=== PATIENT | male | born 1995 | race Caucasian/White ===

== ENCOUNTER 2025-02-04 15:48 | Emergency (ER) | payer MEDICAID, SELFPAY ==
--- OUTSIDE RECORDS SUMMARY | 2020-02-02 08:00 | XMS_ITS | Continuity of Care Document ---
Author Organization [facility] Address [id number] [address] Phone Care Team Providers Care Communications Programmer Name Role Phone Unavailable Unavailable Unavailable Allergies, Adverse Reactions, Alerts Substance Reaction Status Criticality No Known Allergies Active No Inform ation Medications Medication Instructions Dosage Effective Dates (start - stop) Status Comments Celexa 40 mg tablet Take 1 Tablet PO QHS - Active Celexa 40 mg tablet take /2 tab PO Q HS for 1 week then increase to 1 tab PO Q HS - No Longer Active Procedures Procedure Date Finalize Template Workaround OFFICE/OUTPATIENT VISIT, EST (1371) Finalize Template Workaround PSYCH DIAG EVAL W/MED SRVCS (94) 2019 Patient Left / No Show Advance Directives Directive Yes / No Effective Date File Name No Information Encounters Encounter Description Practice Location Reason(s) For Visit Diagnoses Date Provider Providers Copied on Encounter [facility], [id number] [facility], [place]EVIN Brian, [id number], [place] tel:[phone] Behavioral Medicine F2 Depression (chief complaint)A nxiety (chief complaint) Major depressive disorder, recurrent, moderateGenera lized Anxiety Disorder 0 No Information [facility], [id number]- [facility], [place], [place], [id number], tel:[phone] Behavioral Medicine F2 Initial psych eval (chief complaint) Major depressive disorder, recurrent, moderateGenera lized Anxiety Disorder [phone] No Information [facility], [id number] [place] [place], [id number], tel:[phone] [facility] [phone] [place], [address], [place]. tel:[phone] Referring Provider: Michelet Cedillo, [address] [place], [address]. tel:[phone] Family History Family Member Type Diagnosis Age At Onset Problem (finding) Family history of Menta l illness Payers Payer name Insurance type Covered democrat ID Authoriza tion(s) No Information Social History Type Description Quantity Date Captured Comments Alcohol Use Details Unknown Caffeine Use Details Unknown Tobacco Use Status Occasional cigarette smoker Smoking Status Heavy tobacco smoker Smoking Tobacco Use Details Cigarette: No Details Available Cigarette: 1 Packs per day Sex Male Vital Signs Date / Time: Height Weight BMI Pulse Rate Blood Pressure Temperature Respiratory Rate Body Surface Area Head Circumference Head Circ. Percentile Wt./Renaldo. Percentile BMI percentile Pulse Ox Inhaled Ox 1:03 PM 70.00 in 61.235 kg (135.00 lbs) 19.3 7 kg/m eter (2) 95 /min 116/60 mm[Hg] 99.10 F 16 /min 1.74 meter(2) 95 % 21 % Chief Complaint And Reason For Visit From encounter dated '02/02/2020 13:00'. Depression (chief complaint). Description: This is a follow up visit. Related symptoms are stable. There is improvement of initial symptoms. The patient reports functioning as not difficult at all. The patient denies any presenting symptoms. The patient denies any aggravating factors. The patient's relieving factors are a 95% response to medication (Celexa). The patient denies any headache, nausea, urinary frequency, vomiting and weight gain. The patient denies any associated symptoms. Anxiety (chief complaint) Reason For Referral Reason For Referral No Information Plan Of Treatment Date Type Action Status Goal Tobacco cessation counseling completed Goal Tobacco cessation counseling completed History Of Present Illness Encounter Date Complaint History Of Prese nt Illness Depression This is a follow up visit. Related symptoms are stable. There is improvement of initial symptoms. The patient reports functioning as not difficult at all. The patient denies any presenting symptoms. The patient denies any aggravating factors. The patient's relieving factors are a 95% response to medication (Celexa). The patient denies any headache, nausea, urinary frequency, vomiting and weight gain. The patient denies any associated symptoms. Anxiety Initial psych eval This is a 24 year old white male who is here today establishing care and was referred to us by family. Patient presents today with depression, isolation, dysphoria, anhedonia, anergia, anxiety, and feelings of panic.PSYCHIATRIC HISTORYPatient reports mood symptoms starting approximately 2 years ago and indicates that he has had no treatment in the past. He does report depression, dysphoria, anhedonia, anergia, isolation, and hypersomnia and also reports continuing anxiety with worry and fear in addition to minimal panic attacks. No past inpatient admissions are reported and patient reports no history of Traumatic brain injury.MEDICAL HISTORYPatient denies any history of medical problems.TRAUMA HISTORYThe patient was asked about any history of trauma, including Physical, Verbal, Sexual, Elder abuse/neglect, as well as Immigration trauma. Patient denies history of having been a victim of or witness to Domestic or Community violence.SUBSTANCE USE HISTORYThe following substances and behaviors were discussed: Illegal/Prescription/Ykyh-lgh-vvwxiea drugs, Gambling, Alcohol, and Tobacco/Vaping. Patient denies past or present substance use or addictive behaviors.LEGAL HISTORYPatient denies current legal problems.SOCIAL HISTORYThe following Social Supports were discussed: Orthodoxy, Family/Friendships, Therapy, and Cultural/Ethnic/Community supports. This 24 year old male is singe, never , and has 1 child. He currently resides with family and has no service history.FUNCTIONAL STRENGTHSPatient reports no history of developmental delays and indicates that his highest level of education is 12th grade, however, he reports that he did not graduate. No employment history is reported and patient indicates that he is currently job searching.FAMILY HISTORYNo history of adoption. Patient's family is rife with psychiatric disorders.RISK ASSESSMENTRisks for this patient include current symptomology. Patient denies current suicidal or homicidal ideation and reports no prior suicide or homicide attempts. Functional Status Date Functional Assessmen t No Information Instructions Date Instruction Additional Infor dwayne I reviewed patient's chart including previous progress notes, lab data and nursing notes. We spoke about the risks and benefits of current medications and treatment plan. We also spoke about life style changes, including diet, exercise and substance abuse. Lastly we spoke about continuing the treatment plan and what to do if conditions worsen.Continue all medications as indicated, no changes necessary at this time.Follow-up: Return to clinic in 3 months for follow-up visit. Related to Major depressive disorder, recurrent, moderate I reviewed patient's chart including previous progress notes, lab data and nursing notes. We spoke about the risks and benefits of changes being made in medications, including possible drug/drug interactions and potential side effects. I explained the reason for the changes, i.e. better genetic match, different side effect profile and targeted symptoms. I explained other treatment options available. We also spoke about life style changes, including diet, exercise and substance abuse. Lastly we spoke about continuing the treatment plan and what to do if conditions worsen.Start Celexa at 20mg QHS x1 week, then increase to 40mg QHS.Follow-up: Return to clinic in 4-6 weeks for follow-up visit. Related to Major depressive disorder, recurrent, moderate Assessments Type Assessment Date assessment Major depressive disorder, recur rent, moderate assessment Generalized Anxiety Disorder Jan Mental Status Date Cognitive Assessment Normal Orientation Patient Care Teams Name Effective Dates (start - stop) Status Members No Information
[2025-02-04 15:54] VITALS: BP 132/78; PULSE 84; RESP 15; TEMP 36.9; O2SAT 97; BMI 20.7
--- NOTE | 2025-02-04 17:44 | W.ED.DENTAL ---
HPI - Dental/Oral General: Chief complaint: Dental/Oral Stated complaint: dental pain Time Seen by Provider: 02/04/25 16:23 Source: patient Mode of arrival: ambulatory Limitations: no limitations History of Present Illness: Patient is a 29-year-old male presents emergency department complaining of left-sided facial pain and swelling. States that he thinks he has a dental abscess, due to his history of similar in the past. States he has been unable to get into a dentist thus far. Notes a history of IV drug use. No fever, trouble swallowing, nausea/vomiting, or any other symptoms reported at this time. Pain primarily to the left lower and left upper jaw. MD Complaint: tooth pain Onset (ago): day(s) Duration: constant Severity: moderate Associated symptoms: Denies ear or mastoid pain or fever(s) Related Data Previous Rx's ?Medication ?Instructions ?Recorded amoxicillin 875 mg-potassium 1 tab PO BID 10 days #20 tabs 02/04/25 clavulanate 125 mg tablet Allergies Allergy/AdvReac Type Severity Reaction Status Date / Time No Known Allergies Allergy Verified 02/04/25 15:58 Review of Systems General: Reports: 10 or more systems reviewed and unremarkable except in HPI and below Const: Denies: fever(s), chills or fatigue Eyes: Denies: change in vision ENMT: Reports: dental pain and sinus pain; Denies: throat pain, ear or mastoid pain or nasal discharge Card: Denies: chest pain, palpitations, swelling of feet/ankles or lightheadedness Resp: Denies: dyspnea, productive cough or wheezing GI: Denies: abdominal pain, nausea, vomiting, diarrhea or constipation : Denies: flank pain, difficulty urinating, dysuria or urinary frequency Musc: Denies: neck pain, back pain or joint pain Skin/Breast: Denies: rash Neuro: Denies: headache(s), numbness in extremities or weakness in extremities Physical Exam Const: COMMON NORMALS: no acute distress and no limitations GENERAL APPEARANCE: cooperative, comfortable and well developed ORIENTATION/CONSCIOUSNESS: Yes awake HENMT: COMMON NORMALS: normocephalic, atraumatic and hearing grossly normal bilaterally HEAD & SCALP: normocephalic and atraumatic OTHER: Gingival erythema and edema to left upper and left lower jaw. There is active drainage from apical abscess to left lower jaw. Mild facial swelling noted. Facial tenderness to palpation. Normal posterior oropharyngeal exam. Eye: COMMON NORMALS: Equal, round and reactive pupils present, EOMs intact bilaterally and conjunctivae normal CONJUNCTIVA: Yes conjunctivae normal PUPIL: Yes Equal, round and reactive pupils present Neck/C-Spine: COMMON NORMALS: full ROM, supple and no JVD Resp: COMMON NORMALS: normal respiratory effort, No retractions, No use of accessory muscles and clear to auscultation bilaterally AUSCULTATION: clear to auscultation bilaterally Cardio: COMMON NORMALS: no JVD, regular rate, regular rhythm, No clicks present (Cardio), No murmurs present (Cardio) and No rub (Cardio) RATE: regular rate RHYTHM: regular rhythm Extremity: COMMON NORMALS: normal to inspection, full ROM and capillary refill normal Skin: COMMON NORMALS: no rashes or lesions noted GENERAL SKIN EXAM: no rashes or lesions noted Course Vital Signs: Vital signs: Vital Signs Temperature 98.4 F 02/04/25 15:54 Pulse Rate 84 02/04/25 15:54 Respiratory Rate 15 02/04/25 15:54 Blood Pressure 132/78 02/04/25 15:54 Pulse Oximetry 97 02/04/25 15:54 Oxygen Delivery Me thod Room Air 02/04/25 15:54 MDM - Dental/Oral Medical Decision Making Patient to be treated for dental abscess with Augmentin, he states that he is actively trying to get into a dentist for further dental care. Decadron shot given here, he denies needing any pain medication. Discharge at this time. Vital stable. No radiology studies performed this visit Discharge Plan Discharge Patient Disposition: Home Clinical Impression: Dental abscess Condition: Stable Prescriptions: New amoxicillin-pot clavulanate 875-125 mg tablet 1 tab PO BID 10 Days Qty: 20 0RF Discharge Orders: Discharge ED (Routine); Ordered 02/04/25 Ordered By: Jorden Wright Patient Instructions: Patient Portal & Cinthia Instructions Activity Restrictions/Additional Instructions: Dental abscess discharge Diagnosis: Dental abscess (tooth infection with swelling on the left side of the face) What was done today - Evaluated in the emergency department. - Given a single dose of dexamethasone (Decadron) to help with swelling and pain for a short time. - Started on an antibiotic to help control the infection. - You need prompt dental treatment to fix the source of the infection (such as drainage, root canal, or tooth removal). Antibiotics alone do not cure a dental abscess. Medicines - Amoxicillin?clavulanate (Augmentin): Take as prescribed, twice a day, for up to 10 days. - If the swelling and pain get better sooner, the [place] [employer] advises stopping the antibiotic 24 hours after symptoms have fully resolved. Do not stop earlier than advised without talking to a dentist or the emergency team. - Take with food to reduce stomach upset. If a dose is missed, take it when remembered unless it?s close to the next dose (do not double up). - Call urgently for rash, trouble breathing, severe diarrhea (more than 3 loose stools a day), or belly pain. - Pain control: - First choice for dental pain is ibuprofen together with acetaminophen, if safe for you: 400?600 mg ibuprofen plus 1,000 mg acetaminophen, taken together every 6?8 hours as needed. Do not exceed 3,000 mg of acetaminophen in 24 hours unless told otherwise. Avoid ibuprofen if you have kidney disease, ulcers, or were told not to take NSAIDs. - Use cold packs on the cheek 15?20 minutes at a time, a few times a day, for comfort. - Dexamethasone effects (from the dose given today): May briefly raise blood sugar, cause trouble sleeping, or make you feel flushed or restless. These usually fade within 24?48 hours. If you develop fever that persists or worsening pain/swelling, seek care. Dental follow-up (very important) - See a dentist or weight loss centre manager as soon as possible, ideally within 24?48 hours, for treatment to drain the infection and treat or remove the tooth. This is the mullins step to cure the abscess and prevent it from coming back. - If you cannot get an appointment within 1?2 days, call the dental office and return to urgent care or the emergency department if symptoms are worsening. Eating, drinking, and self-care - Drink plenty of fluids. Soft foods may be easier until pain improves. - Keep the mouth clean: gently brush and consider warm saltwater rinses (? teaspoon salt in a cup of warm water) after meals to help with soreness. Do not use alcohol-based mouthwashes if they sting. Warning signs ? seek urgent care now or return to the emergency department - Fever (100.4?F / 38?C or higher), chills, feeling very ill or weak. - Swelling that is spreading (under the tongue, floor of mouth, neck), trouble opening the mouth, drooling, trouble swallowing, voice changes, or trouble breathing. - Eye swelling or vision changes. - Worsening pain or swelling after starting antibiotics. - No improvement within 48?72 hours. How long to take the antibiotic - Take Augmentin as prescribed. If your pain and swelling fully resolve, the ADA advises it is reasonable to stop the antibiotic 24 hours after symptoms are gone; otherwise continue up to the full 10 days if symptoms persist, and follow up with a dentist for recheck within 3 days by visit or phone. - If there is no improvement or things get worse after 48?72 hours, you may need a change in treatment or different antibiotics; seek dental or medical care promptly. Why dental treatment is essential - Dental abscesses come from infection inside the tooth and nearby tissues. The best fix is to remove the source (drainage, root canal, or extraction). Antibiotics help when there is swelling or signs the infection is spreading, but they do not replace dental procedures. Allergies or intolerances - If a rash, hives, swelling of lips/tongue, or trouble breathing occurs after taking Augmentin, stop it and go to the nearest emergency department. Contact information - For questions about medicines or if symptoms change, contact your dentist or return to urgent care/emergency department. Print Language: Yi Coding Level of Care Code ED Neuropsychiatric Aide for Nell Vizcarra
[2025-02-04 17:57] VITALS: BP 143/79; PULSE 75; O2SAT 99
== END 2025-02-04 17:58 | disposition home or self-care (01) ==
PROVIDERS: Emergency Provider Physician Assistant
DX: K04.7 Periapical abscess without sinus (principal)
CPT/HCPCS: 96372; 99284; J1100